=== PATIENT | female | born 1965 | race Two or more races ===

== ENCOUNTER 2025-02-25 09:02 | Inpatient (IN) | payer MEDICAID, OTHER ==
[~2025-02-25] VITALS: Ht 165.1 cm; Wt 68.9 kg
--- NOTE | 2025-02-25 11:30 | DVH ---
CLINICAL HISTORY: abdominal pain TECHNIQUE: Single view of the chest was obtained. COMPARISON: None FINDINGS: The heart size and pulmonary vasculature are normal. The lungs are clear. IMPRESSION: NO ACUTE CARDIOPULMONARY PROCESS.
--- NOTE | 2025-02-25 11:34 | ED.PDOC ---
History of Present Illness HPI Comments 59-year-old female who is Thai-speaking presents to the ER with prior medical history of hypertension, high lipids chief complaint of abdominal pain. Patient reports on having chills, sternal chest pain which radiates down to the epigastric area, bilateral flank pain, cervical pain and nausea for which all started yesterday. Patient states on having had similar symptoms in the past and assumes that it is the liver. Denies any other symptoms at this time. Denies chills, fever, /V/D, SOB, CP. No other associated symptoms, modifiers, recent injuries or sick contacts present at this time. 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 Family History Family History: Reviewed,noncontributory to illness, Unknown Social History Smoker: Non-Smoker Alcohol: Denies ETOH Use Drugs: Denies Drug Use Lives In: Home Constitutional: reports: chills; denies: diaphoresis, fatigue, fever, malaise, sweats, weakness, others EENTM: denies: blurred vision, double vision, ear bleeding, ear discharge, ear drainage, ear pain, ear ringing, eye pain, eye redness, hearing loss, mouth pain, mouth swelling, nasal discharge, nose bleeding, nose congestion, nose pain, photophobia, tearing, throat pain, throat swelling, voice changes, others Respiratory: denies: cough, hemoptysis, orthopnea, SOB at rest, shortness of breath, SOB with excertion, stridor, wheezing, others Cardiovascular: reports: chest pain; denies: dizzy spells, diaphoresis, Dyspnea on exertion, edema, irregular heart beat, left arm pain, lightheadedness, palpitations, PND, syncope, others Gastrointestinal: reports: abdominal pain, nausea; denies: abdomen distended, blood streaked bowels, constipated, diarrhea, dysphagia, difficulty swallowing, hematemesis, melena, poor appetite, poor fluid intake, rectal bleeding, rectal pain, vomiting, others Genitourinary: reports: flank pain; denies: abnormal vagina bleeding, burning, dyspareunia, dysuria, frequency, hematuria, incontinence, pain, , vagina discharge, urgency, others Neurological: denies: dizziness, fainting, headache, left sided numbness, left sided weakness, numbness, paresthesia, pre-existing deficit, right sided numbness, right sided weakness, seizure, speech problems, tingling, tremors, weakness, others Musculoskeletal: reports: others (Cervical pain); denies: back pain, gout, joint pain, joint swelling, muscle pain, muscle stiffness, neck pain Integumetry: denies: bruises, change in color, change in hair/nails, dryness, laceration, lesions, lumps, rash, wounds, others Allergic/Immunocompromised: denies: Difficulty Healing, Frequent Infections, Hives, Itching, others Hematologic/Lymphatic: denies: anemia, blood clots, easy bleeding, easy bruising, swollen glands, others Endocrine: denies: excessive hunger, excessive sweating, excessive thirst, excessive urination, flushing, intolerance to cold, intolerance to heat, unexplained weight gain, unexplained weight loss, others Psychiatric: denies: anxiety, bipolar disorder, depression, hopeless, panic disorder, schizophrenia, sleepless, suicidal, others All Other Systems: Reviewed and Negative Physical Exam General Appearance: No Apparent Distress, Normal HEENT: Normal ENT Inspection, Pharynx Normal, TMs Normal Neck: Full Range of Motion, Non-Tender, Normal, Normal Inspection Respiratory: Chest Non-Tender, Lungs Clear, No Accessory Muscle Use, No Respiratory Distress, Normal Breath Sounds Cardiovascular: No Edema, No JVD, No Murmur, No Gallop, Normal Peripheral Pulses, Regular Rate/Rhythm Breast Exam: Deferred Gastrointestinal: No Organomegaly, Non Tender, No Pulsatile Mass, Normal Bowel Sounds, Soft Genitalia: Deferred Pelvic: Deferred Rectal: Deferred Extremities: No calf tenderness, Normal capillary refill, Normal inspection, Normal range of motion, Non-tender, No pedal edema Musculoskeletal : Apperance: Normal Neurologic: 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 Was a procedure done?: No Differential Dx Considerations may include: see mdm X-Ray, Labs, Meds, VS Vital Signs Date Time Temp Pulse Resp B/P (MAP) Pulse Ox O2 Delivery O2 Flow Rate FiO2 02/25/25 12:50 76 20 142/89 02/25/25 12:10 69 20 188/93 02/25/25 12:10 69 20 97 Room Air 02/25/25 12:10 98.6 69 20 188/93 (124) 97 98.6 02/25/25 09:13 72 02/25/25 09:03 97.9 82 18 170/86 97 97.9 Lab Test 02/25/25 11:31 02/25/25 11:24 Range/Units Urine Color Yellow Yellow Urine Clarity Clear Clear Urine pH 6.0 5.0-9.0 Urine Specific [place] 1.022 1.001-1.035 Urine Protein 1+ H Negative Urine Ketones Negative Negative Urine Blood 2+ H Negative /uL Urine Nitrite Negative Negative Urine Bilirubin Negative Negative Urine Urobilinogen Normal Negative mg/dL Urine Leukocyte Esterase Negative Negative /uL Urine RBC 21 0 - 4 /hpf Urine Microscopic WBC 5 0-5 /HPF Urine Squamous Epithelial Cells Few <5 /hpf Urine Bacteria Few H None Seen /hpf Urine Mucus Few None Seen Urine Glucose Trace Normal mg/dL White Blood Count 12.5 H 4.4-10.8 10^3/uL Red Blood Count 4.83 4.0-5.20 10^6/uL Hemoglobin 15.2 12.2-16.2 g/dL Hematocrit 44.5 36.0-46.0 % Mean Corpuscular Volume 92.2 80.0-100.0 fL Mean Corpuscular Hemoglobin 31.5 28.0-32.0 pg Mean Corpuscular Hemoglobin Concent 34.2 32.0-36.0 g/dL Red Cell Distribution Width 12.5 11.8-14.3 % Platelet Count 252 140-450 10^3/uL Mean Platelet Volume 9.0 6.9-10.8 fL Neutrophils (%) (Auto) 93.4 H 37.0-80.0 % Lymphocytes (%) (Auto) 4.6 L 10.0-50.0 % Monocytes (%) (Auto) 1.8 0.0-12.0 % Eosinophils (%) (Auto) 0.0 0.0-7.0 % Basophils (%) (Auto) 0.2 0.0-2.0 % Neutrophils # (Auto) 11.6 H 1.6-8.6 10 ^3/uL Lymphocytes # (Auto) 0.6 0.4-5.4 10 ^3/uL Monocytes # (Auto) 0.2 0-1.3 10 ^3/uL Eosinophils # (Auto) 0 0-0.8 10 ^3/uL Basophils # (Auto) 0 0-0.2 10 ^3/uL Nucleated Red Blood Cells 0.1 % Sodium Level 140 136-145 mmol/L Potassium Level 3.8 3.5-5.1 mmol/L Chloride Level 101 98-107 mmol/L Carbon Dioxide Level 28 20-31 mmol/L Anion Gap 11 5-15 Blood Urea Nitrogen 8 L 9-23 mg/dL Creatinine 0.68 0.550-1.02 mg/dL Glomerular Filtration Rate Calc 99 >90 mL/min BUN/Creatinine Ratio 11.8 10.0-20.0 Serum Glucose 133 H 74-106 mg/dL Calcium Level 10.5 H 8.7-10.4 mg/dL Total Bilirubin 0.7 0.2-1.0 mg/dL Aspartate Amino Transferase (AST) 18 13-40 U/L Alanine Aminotransferase (ALT) 19 7-40 U/L Alkaline Phosphatase 113 46-116 U/L Troponin I High Sensitivity 29 </=34 ng/L Total Protein 8.0 5.7-8.2 g/dL Albumin 4.9 H 3.2-4.8 g/dL Lipase 25 12-53 U/L Current Medications Medications (Trade) Dose Ordered Sig/Kirsty Route Start Time Stop Time Status Last Admin Sodium Chloride 1,000 ml @ 1,000 mls/hr Q1H ONCE IV 02/25/25 11:15 02/25/25 12:14 DC 02/25/25 12:08 Morphine Sulfate 4 mg ONCE ONCE IV 02/25/25 11:15 02/25/25 11:16 DC 02/25/25 12:10 Ondansetron HCl (Zofran) 4 mg ONCE ONCE IV 02/25/25 11:15 02/25/25 11:16 PA 02/25/25 12:08 Time of 1ST Reevaluation: 11:35 Reevaluation 1ST: Unchanged Patient Education/Counseling: Diagnosis, Treatment, Prognosis Family Education/Counseling: No Family Present SEPSIS Sepsis Screen Date sepsis recognized/suspect: Feb 25, 2025 Time Sepsis recognized/suspect: 905 Recent Procedure: No On Antibiotic Therapy: No Respiratory Rate >20: No Heart Rate >90: No Temp<36 C (96.8 F) or >38.3 C: No SBP <90 or MAP <65 mmHG: No New Acute Mental Status Change: No Is the patient on CPAP, BIPAP,: No Physician Orders Electrocardigram (02/25/25 09:07) Chest Portable (02/25/25 11:02) Ct Ab Pel With Iv Con Only (02/25/25 11:40) * Surgical Consult (02/25/25 ) Sodium Chloride 0.9% (02/25/25 14:00) Morphine Sulfate Injection (02/25/25 14:00) Ondansetron Hcl (Zofran) (02/25/25 14:00) Cefazolin 2 Gm/L4t21dz (Ancef) (02/25/25 14:00) Metronidazole 500mg/100ml (Flagyl 500mg/ (02/25/25 14:00) Vital Signs Date Time Temp Pulse Resp B/P (MAP) Pulse Ox O2 Delivery O2 Flow Rate FiO2 02/25/25 12:50 76 20 142/89 02/25/25 12:10 69 20 188/93 02/25/25 12:10 69 20 97 Room Air 02/25/25 12:10 98.6 69 20 188/93 (124) 97 98.6 02/25/25 09:13 72 02/25/25 09:03 97.9 82 18 170/86 97 97.9 Laboratory Tests Test 02/25/25 11:24 White Blood Count 12.5 10^3/uL (4.4-10.8) H Medications Medications Dose Ordered Sig/Kirsty Route Start Time Stop Time Status Last Admin Dose Admin Morphine Sulfate 4 mg ONCE ONCE IV 02/25/25 11:15 02/25/25 11:16 DC 02/25/25 12:10 Ondansetron HCl 4 mg ONCE ONCE IV 02/25/25 11:15 02/25/25 11:16 DC 02/25/25 12:08 Sodium Chloride 1,000 ml @ 1,000 mls/hr Q1H ONCE IV 02/25/25 11:15 02/25/25 12:14 DC 02/25/25 12:08 Departure 1 Departure Time of Disposition: 14:13 (MEDICAL DECISION MAKING (HIGH COMPLEXITY 80831):The patient is a 59-year-old female with a history of hypertension and hyperlipidemia who presents with intractable abdominal pain. Her presentation and diagnostic findings are concerning for acute cholecystitis, representing an acute illness with risk of significant morbidity and potential for rapid deterioration.Data Reviewed / Independent Interpretation:I independently reviewed all lab and imaging studies.CBC is notable for WBC 12.5, suggesting an acute inflammatory or infectious process.CMP is benign, without evidence of biliary obstruction, hepatic dysfunction, or renal injury.Lipase is benign, reducing likelihood of acute pancreatitis.I independently interpreted the CT scan, which shows findings concerning for acute cholecystitis, including gallbladder wall thickening and pericholecystic inflammatory changes.These findings correlate strongly with her persistent right upper quadrant abdominal pain, nausea, and systemic inflammatory response.Assessment, Differential & Ma nagement:Differential diagnoses included acute cholecystitis, choledocholithiasis, cholangitis, pancreatitis, appendicitis, perforated ulcer, and nonspecific infectious or ischemic abdominal pathology. Given her clinical presentation, CT findings, and leukocytosis, acute cholecystitis is the leading diagnosis.The patient has intractable abdominal pain requiring multiple doses of IV morphine, and nausea managed with IV ondansetron. She has also required IV fluids for volume support. Treatment was initiated with broad-spectrum IV antibiotics to reduce progression to sepsis or gallbladder perforation.Given the severity of pain, CT findings, elevated WBC, and risk of rapid deterioration including sepsis, rupture, or biliary obstruction, urgent surgical evaluation is required. I have contacted and consulted the surgical service, who will evaluate the patient for admission and operative management.Due to the acute intra- abdominal infection and the patients ongoing symptoms despite treatment, inpatient admission is medically necessary for IV antibiotics, serial abdominal exams, pain control, and surgical management.CRITICAL CARE TIME: 38 MINUTESA total of 38 minutes of critical care time was provided, exclusive of separately billable procedures. Critical care was required due to the immediate risk of significant morbidity from suspected acute cholecystitis with potential for sepsis, gallbladder rupture, peritonitis, and hemodynamic instability.Critical care activities included:Frequent bedside reassessment of abdominal exam and hemodynamic statusInterpretation of labs (CBC, CMP, lipase) and CT imagingInitiation and titration of IV fluidsAdministration of IV antibioticsManagement of severe abdominal pain and nauseaDevelopment and adjustment of the acute abdominal infection treatment planCoordination and discussion with the surgical teamContinuous monitoring for clinical deteriorationHigh-intensity medical decision making throughout her ED courseThe patient was at high risk for sudden progression to sepsis or peritonitis, warranting critical care.) Impression: Primary Impression: Acute cholecystitis Additional Impressions: Intractable abdominal pain Nausea Disposition: ADMITTED INPATIENT Admit to: Tele Condition: Guarded Critical Care Note Critical Care Time?: Yes Stability Stability form required: No I personally scribed for SRINI AREVALO MD ([email or web address]) on 02/25/25 at 11:34. Electronically submitted by Alban Can ([email or web address]). SRINI AREVALO MD Feb 25, 2025 11:34
[2025-02-25 11:38] LABS: Hematocrit 44.5 % (36.0-46.0); Hemoglobin 15.2 g/dL (12.2-16.2); Mean Corpuscular Hemoglobin 31.5 pg (28.0-32.0); Mean Corpuscular Volume 92.2 fL (80.0-100.0); Nucleated Red Blood Cells % 0.1 %
[2025-02-25 11:53] LABS: Alanine Aminotransferase 19 U/L (7-40); Alkaline Phosphatase 113 U/L (46-116); Anion Gap 11 (5-15); BUN/Creatinine Ratio 11.8 (10.0-20.0); Carbon Dioxide 28 mmol/L (20-31); Chloride 101 mmol/L (98-107); Potassium 3.8 mmol/L (3.5-5.1); Sodium 140 mmol/L (136-145); Total Protein 8.0 g/dL (5.7-8.2)
[2025-02-25 11:54] LABS: Bilirubin, Total 0.7 mg/dL (0.2-1.0)
[2025-02-25 11:57] LABS: Albumin 4.9 g/dL (3.2-4.8); Blood Urea Nitrogen 8 mg/dL (9-23); Calcium 10.5 mg/dL (8.7-10.4); Glucose 133 mg/dL (74-106)
[2025-02-25] MEDS: SODIUM CHLORIDE 0.9% 1,000 ML IV ONE ×2 (12:08→14:29)
[2025-02-25] MEDS: ONDANSETRON HCL 4 MG/2 ML VIAL IV ONE ×2 (12:08→14:49)
[2025-02-25] MEDS: MORPHINE SULFATE 4 MG/ML SYR/VIAL IV ONE ×2 (12:10→14:50)
[2025-02-25 12:38] LABS: Lipase 25 U/L (12-53)
[2025-02-25] MEDS: IOHEXOL 300 MG/ML 100ML BOTTLE IJ ONE (13:15)
[2025-02-25 13:23] LABS: Urine Protein, UAD 1+ (Negative)
--- NOTE | 2025-02-25 13:48 | DVH ---
CLINICAL HISTORY: abdominal pain TECHNIQUE: CT of the abdomen and pelvis was performed with IV contrast. This exam was performed according to our departmental dose optimization program. Up-to-date CT equipment and radiation dose reduction techniques are utilized as appropriate. CTDI 7.8 DLP 411 COMPARISON: None FINDINGS: Abdomen/Pelvis: The spleen, pancreas, right adrenal gland, left kidney, uterus, and bladder are unremarkable. There is diffuse hepatic steatosis. The right kidney is malrotated. There is a 2.5 cm stone within the gallbladder neck an additional stone within the gallbladder fundus. There is subtle minimal pericholecystic inflammation and mild gallbladder wall thickening The abdominal aorta is normal in course and caliber. There are no significant atherosclerotic calcifications. There is no free intraperitoneal air or fluid. There is no enlarged abdominal or pelvic lymph node. There is no bowel wall thickening or dilatation. The appendix is normal. There is colonic diverticulosis, moderate at the sigmoid segment. Other: The imaged lower thorax is unremarkable. No acute osseous abnormality is evident. IMPRESSION: Cholelithiasis with mild gallbladder wall thickening and subtle minimal pericholecystic inflammatory change, raising possibility of early acute cholecystitis. Diffuse hepatic steatosis. Colonic diverticulosis.
[2025-02-25] MEDS: ceFAZolin 2 GM/D5W50ml 50 ML IV ONE (14:48)
[2025-02-25] MEDS: BUPIVACAINE HCL 50 ML ONE (16:05)
--- NOTE | 2025-02-25 16:07 | DVHINCON2 ---
Consultation - Surgical Date Seen: Feb 25, 2025 Referring Physician Reason for Consultation Cholecystitis History of Present Illness History of Present Illness Mrs. Mobley is a 59-year-old female who presents with epigastric and right upper quadrant abdominal pain that started yesterday around 5:00 p.m.. Patient states she ate some rice and chicken before the pain started. States that it feels like the gallbladder pain she had 4 years ago, she has not had any other pain episodes until now in the last 4 years. Has a associated chills and nausea but no vomiting. Denies fevers, acholic stools, changes in urinary or stooling habits. Past Medical/Surgical History Past Medical/Surgical History Past medical history hyperlipidemia, hypertension, left breast cancer, cholelithiasis past surgical history left partial mastectomy with axillary sentinel lymph node biopsy, some sort of uterine surgery Family and Social History Family and Social History Family history noncontributory ETOH/T Ob/drugs denies Allergies and medications Allergies: Coded Allergies: NO KNOWN ALLERGIES (Unverified , 02/25/25) Review of systems Review of Systems: HEENT:Normal, CVS:Normal, RESPIRATORY:Normal, GI:Abnormal (See HPI), :Normal, MSK:Normal, NEURO:Normal Examination Vital signs Vital Signs Date Time Temp Pulse Resp B/P (MAP) Pulse Ox O2 Delivery O2 Flow Rate FiO2 02/25/25 14:50 65 18 193/97 02/25/25 12:10 97 Room Air 02/25/25 12:10 98.6 98.6 Laboratory Labs Test 02/25/25 11:31 02/25/25 11:24 Range/Units Urine Color Yellow Yellow Urine Clarity Clear Clear Urine pH 6.0 5.0-9.0 Urine Specific [place] 1.022 1.001-1.035 Urine Protein 1+ H Negative Urine Ketones Negative Negative Urine Blood 2+ H Negative /uL Urine Nitrite Negative Negative Urine Bilirubin Negative Negative Urine Urobilinogen Normal Negative mg/dL Urine Leukocyte Esterase Negative Negative /uL Urine RBC 21 0 - 4 /hpf Urine Microscopic WBC 5 0-5 /HPF Urine Squamous Epithelial Cells Few <5 /hpf Urine Bacteria Few H None Seen /hpf Urine Mucus Few None Seen Urine Glucose Trace Normal mg/dL White Blood Count 12.5 H 4.4-10.8 10^3/uL Red Blood Count 4.83 4.0-5.20 10^6/uL Hemoglobin 15.2 12.2-16.2 g/dL Hematocrit 44.5 36.0-46.0 % Mean Corpuscular Volume 92.2 80.0-100.0 fL Mean Corpuscular Hemoglobin 31.5 28.0-32.0 pg Mean Corpuscular Hemoglobin Concent 34.2 32.0-36.0 g/dL Red Cell Distribution Width 12.5 11.8-14.3 % Platelet Count 252 140-450 10^3/uL Mean Platelet Volume 9.0 6.9-10.8 fL Neutrophils (%) (Auto) 93.4 H 37.0-80.0 % Lymphocytes (%) (Auto) 4.6 L 10.0-50.0 % Monocytes (%) (Auto) 1.8 0.0-12.0 % Eosinophils (%) (Auto) 0.0 0.0-7.0 % Basophils (%) (Auto) 0.2 0.0-2.0 % Neutrophils # (Auto) 11.6 H 1.6-8.6 10 ^3/uL Lymphocytes # (Auto) 0.6 0.4-5.4 10 ^3/uL Monocytes # (Auto) 0.2 0-1.3 10 ^3/uL Eosinophils # (Auto) 0 0-0.8 10 ^3/uL Basophils # (Auto) 0 0-0.2 10 ^3/uL Nucleated Red Blood Cells 0.1 % Sodium Level 140 136-145 mmol/L Potassium Level 3.8 3.5-5.1 mmol/L Chloride Level 101 98-107 mmol/L Carbon Dioxide Level 28 20-31 mmol/L Anion Gap 11 5-15 Blood Urea Nitrogen 8 L 9-23 mg/dL Creatinine 0.68 0.550-1.02 mg/dL Glomerular Filtration Rate Calc 99 >90 mL/min BUN/Creatinine Ratio 11.8 10.0-20.0 Serum Glucose 133 H 74-106 mg/dL Calcium Level 10.5 H 8.7-10.4 mg/dL Total Bilirubin 0.7 0.2-1.0 mg/dL Aspartate Amino Transferase (AST) 18 13-40 U/L Alanine Aminotransferase (ALT) 19 7-40 U/L Alkaline Phosphatase 113 46-116 U/L Troponin I High Sensitivity 29 </=34 ng/L Total Protein 8.0 5.7-8.2 g/dL Albumin 4.9 H 3.2-4.8 g/dL Lipase 25 12-53 U/L Examination: GENERAL:Normal (Well nourished, alert awake and oriented x3), HEENT:Normal (No icterus, neck supple), LUNGS:Normal (Nonlabored breathing with symmetric expansion), ABDOMEN:Abnormal (Nondistended, Pfannenstiel scar well healed, soft, depressible, mild epigastric tenderness exquisite right upper quadrant tenderness, no rebound, no guarding), SKIN:Normal (No jaundice) Problem List/Assessment/Plan Problems: (1) Acute cholecystitis Assessment and Plan Mrs. Mobley is a 59-year-old female who presents with the acute cholecystitis. CT scan remarkable for 2 extremely large gallstones 1 stuck at the neck of the gallbladder. Physical exam remarkable for exquisite right upper quadrant tenderness. Patient has no leukocytosis or transaminitis. Patient will benefit from laparoscopic cholecystectomy. Procedure, risks, benefits, complications, and alternatives discussed with the patient. She would like to proceed with surgery. 1. On-call to OR for laparoscopic cholecystectomy, possible open 2. NPO 3. A.m. labs (ordered) 4. Pain and nausea control Plan discussed with Plan discussed with: Patient Visit Coding Surgery Date of Service if different f: Feb 25, 2025 Billing Provider: JEROME PRABHAKAR MD Surgery Visit Codes: 81797 - INP CONSULT <110 MIN JEROME PRABHAKAR MD Feb 25, 2025 16:07
[2025-02-25] MEDS ORDERED: METOCLOPRAMIDE HCL 5MG/ml INJ 2ml VIAL IV PRN (16:45)
[2025-02-25] MEDS: ACETAMINOPHEN IV 1000 MG/100ML (10MG/ML) IV ONE (16:45)
[2025-02-25] MEDS ORDERED: ONDANSETRON HCL 4 MG/2 ML VIAL IV PRN ×2 (16:45→19:00)
[2025-02-25] MEDS ORDERED: MIDAZOLAM HCL 2MG/2ML 2ml VIAL (1mg/ml) ONE (16:45)
[2025-02-25] MEDS ORDERED: LIDOCAINE 2% (LOCAL ANESTH.) PF 5ml SDV ONE (16:45)
[2025-02-25] MEDS ORDERED: fentaNYL CITRATE 100 MCG/2 ML VL ONE (16:45)
[2025-02-25] MEDS ORDERED: HYDROmorphone HCL 2 MG/ML VL/or syr IV PRN (16:45)
[2025-02-25] MEDS ORDERED: ONDANSETRON HCL 4 MG/2 ML VIAL ONE (16:45)
[2025-02-25] MEDS ORDERED: METOCLOPRAMIDE HCL 5MG/ml INJ 2ml VIAL ONE (16:45)
[2025-02-25] MEDS ORDERED: ROCURONIUM 10MG/ML 10ML VIAL IV ONE (16:46)
[2025-02-25] MEDS ORDERED: PROPOFOL 10 MG/ML 20 ML IV ONE (16:46)
[2025-02-25 17:07] LABS: INR 0.97 (0.9-1.15); Partial Thromboplastin Time 25.9 SEC (24.5-34.5); Prothrombin Time 10.3 sec (9.3-11.8)
[2025-02-25] MEDS ORDERED: HYDROmorphone HCL 2 MG/ML VL/or syr ONE (17:17)
[2025-02-25] MEDS ORDERED: SUGAMMADEX 200mg/2ml Vial (100MG/ML) IV ONE (17:17)
[2025-02-25] MEDS: BUPIVACAINE 0.5% INJ 50ML VIAL IJ ONE (17:45)
[2025-02-25 18:17] VITALS: PULSE 96; RESP 11; O2SAT 98
[2025-02-25] MEDS ORDERED: HYDROcodone-ACET 10/325MG TAB PO PRN (18:30)
[2025-02-25] MEDS ORDERED: HYDROcodone-ACET 5/325MG TAB PO PRN ×2 (18:30→19:00)
--- NOTE | 2025-02-25 18:35 | DVHOP2 ---
Operative Report - 2 Report Details Date: 02/25/25 Preop Diagnosis: Acute cholecystitis Postop Diagnosis: Same Surgeon: Joel Saha MD Anesthesiologist: Steven howard CRNA Anesthesia: General Consent: The patient was informed of the risks and benefits of the procedure. These include but are not limited to complications of anesthesia, postoperative infection, incomplete relief of symptoms, recurrence of symptoms, damage to blood vessels, nerves and tendons, deep venous thrombosis, pulmonary embolism and possible need for repeat surgery in the future. Complications: None Estimated Blood Loss: 25 mL Findings: Acutely inflamed and distended gallbladder. Extensive omental adhesions to the liver undersurface. Indications for Surgery: Acute cholecystitis Name of Procedure Performed Laparoscopic cholecystectomy Procedure Details Procedure Details: Upon arriving to the operating room the patient was transferred to the operating table and placed in the supine position with the arms extended. general endotracheal anesthesia was induced. Time-out was observed. Patient was prepped and draped in the standard sterile surgical fashion with chlorhexidine. I then proceeded to make an infraumbilical curvilinear incision over previous infraumbilical scar, and carried the dissection down to fascia. Once at the fascia I grasped the umbilical stalk with a Martin clamp and walked it down to its base. Once at the base of the umbilical stalk, I placed a 2nd Martin clamp at the fascia immediately be low at and elevating both clamps I made a transverse fascial incision, gaining entry into the peritoneal cavity. I then placed a fascial retention stitch in [id number] fashion with 0 Vicryl. I t hen inserted the Caldwell trocar and insufflated the peritoneal cavity to 15 mmHg with toleration. I then inserted a 10 mm 30 degree laparoscope, surveyed the entry site, no injuries noted. Patient was then placed in the reverse Trendelenburg [id number] position. I then placed 3 additional 5 mm working ports at the epigastric area, right midclavicular subcostal area, and right flank area. I then directed my attention towards the liver and gallbladder area. The gallbladder was immediately noted to be extremely inflamed and distended. I then decompressed the gallbladder with a needle syringe and evacuated 50 mL of very dark bile. I also noted that the liver was not enlarged and had many omental adhesions to its undersurface surface. The gallbladder fu ndus was then grasped and retracted cephalad and towards the right shoulder. The infundibulum had a large stone stuck in it, I had to milk the stone back into the gallbladder body. A 2nd grasper was used to grasp the gallbladder at the infundibulum and retracted laterally. I then proceeded to incise the peritoneum at the base of the gallbladder on either side of it and carried it towards the liver. This then exposed Calot triangle. I then carefully dissected cholesterol angle off of all fibrous and fatty tissue. Once it was completely skeletonized identified 2 structures entering the gallbladder, the cystic duct and the cystic artery. The cystic duct was then milked for any ductal stones, non felt. I then placed 3 5 mm clips proximal at the cystic duct and 1 distal. I then placed 4 5 mm clips proximal at the artery and 1 distal. The cystic duct and artery were then transected. I then proceeded to dissect the gallbladder off of the liver bed with cautery. While doing this I got into a posterior cystic artery branch, which I gained control of it with a single clip, hemostasis achieved. Once the gallbladder was completely off of the liver bed it was placed in the Endo-Catch bag and taken out of the peritoneal cavity through the infraumbilical incision. I then proceeded to look at the gallbladder fossa, I noted an area of ooze coming from the fossa, this was cauterized and hemostasis achieved. I then proceeded to serially irrigated the gallbladder fossa under the liver and over the liver until effluent was clear. I took a 2nd look at the gallbladder fossa it was hemostatic and the clips were in place. This concluded the intraperitoneal portion of the operation. All counts complete and correct. The 5 mm ports were taken off under direct vision no bleeding from abdominal wall. Peritoneal cavity was allowed to fully desufflate. The infraumbilical fascial retention stitch was closed. 0.25% Marcaine was used as local anesthetic. All skin sites were closed with 4-0 Monocryl and Dermabond. Patient tolerated the procedure well and was transferred to PACU in stable condition. Specimen: Gallbladder and contents Condition Stable Disposition Still a Patient JOEL PRABHAKAR MD Feb 25, 2025 18:35
[2025-02-25] MEDS ORDERED: NITROGLYCERIN 0.4 MG SL TAB SL PRN (19:00)
[2025-02-25] MEDS ORDERED: ACETAMINOPHEN 325 MG TAB PO PRN (19:00)
[2025-02-25] MEDS ORDERED: MORPHINE SULFATE INJ 2 MG/ml SYRG IV PRN (19:00)
[2025-02-25] MEDS ORDERED: hydrALAZINE HCL 20 MG/ML VL IV PRN (19:00)
[2025-02-25] MEDS ORDERED: DOCUSATE SOD 100 MG CAP PO PRN (19:00)
--- NOTE | 2025-02-25 19:18 | DVHHP2 ---
History of Present Illness Reason for Visit: Acute cholecystitis History of Present Illness The patient is a 59-year-old female with past medical history of cholelithiasis, hypothyroidism, hyperlipidemia, left breast cancer, and hypertension who presented to [facility] ED with complaint of abdominal pain. Patient reports that she has been experiencing acute abdominal pain rating 8/10 numeric scale, radiating sternal chest pain, down to epigastric area, bilateral flank, cervical pain, associated nausea, vomiting, chills, getting worse that prompted this visit. Patient was seen and evaluated in the ED, laboratory data shows WBC 12.5, platelets 252, sodium 140, potassium 3.8, BUN 8, creatinine 0.68, GFR 99, glucose 133, calcium 10.5, albumin 4.9, lipase 25, troponin 29, blood pressure 178/87, heart rate 74, temperature 98.7 F, O2 saturation 95% on room air. Abdomen/pelvis CT revealing cholelithiasis with mild gallbladder wall thickening and subtle minimal pericholecystic inflammatory change, raising possibility of early acute cholecystitis; diffuse hepatic steatosis, colonic diverticulosis. Patient was started on IV antibiotic regimen cefepime, please see medication orders section in the computer. General surgeon was consulted and she was taken to operating room. Patient underwent laparoscopic cholecystectomy successfully without any complication. On my assessment, patient denied chest pain, no headache, dizziness, diaphoresis, shortness of breaths, no abdominal pain, nausea, vomiting at this moment, no fever, chills. Patient was admitted for further evaluation and medical management. Past Medical History Cholelithiasis, Hypothyroidism High Lipids, HTN, Left breast cancer Past Surgical History Left partial mastectomy with axillary sentinel lymph node biopsy, Uterine surgery. Family History Reviewed, noncontributory to the management of this case. Past Social History The patient lives at home, denies smoking, alcohol or illicit drugs abuse. Review of Systems Constitutional: No: Fever, Chills, Sweats, Weakness, Malaise, Other Eyes: No: Pain, Vision change, Conjunctivae inflammation, Eyelid inflammation, Other, Redness ENT: No: Ear pain, Ear discharge, Nose pain, Nose discharge, Nose congestion, Mouth pain, Mouth swelling, Throat pain, Throat swelling, Other Respiratory: No: Cough, Dry, Shortness of breath, SOB with excertion, Wheezing, Hemoptysis, Pleuritic Pain, Sputum, Wheezing, Other Cardiovascular: Chest Pain; No: Palpitations, Orthopnea, Paroxysmal Noc. Dyspnea, Edema, Lt Headedness, Other Gastrointestinal: Nausea, Vomiting, Abdominal Pain; No: Diarrhea, Constipation, Melena, Hematochezia, Other Genitourinary: No Dysuria, No Frequency, No Incontinence, No Hematuria, No Retention, No Other Musculoskeletal: No: other, neck pain, shoulder pain, arm pain, back pain, hand pain, leg pain, foot pain Skin: No: Rash, Lesions, Jaundice, Bruising, Other Neurological: No: Weakness, Numbness, Incoordination, Change in speech, Confusion, Seizures, Other Allergies: Coded Allergies: NO KNOWN ALLERGIES (Unverified , 02/25/25) Medications Current Medications Medications Dose Ordered Sig/Kirsty Route Start Time Stop Time Status Last Admin Dose Admin Acetaminophen/ Hydrocodone Bitart 1 tab Q4HR PRN PO 02/25/25 18:30 Acetaminophen/ Hydrocodone Bitart 1 tab Q4HR PRN PO 02/25/25 18:30 Acetaminophen 650 mg Q6HR PO 02/26/25 00:00 Polyethylene Glycol 17 gm DAILY PO 02/26/25 10:00 Atorvastatin Calcium 10 mg HS PO 02/26/25 22:00 UNV Lisinopril 10 mg DAILY PO 02/26/25 10:00 UNV Exam Vital Signs Vital Signs Date Time Temp Pulse Resp B/P (MAP) Pulse Ox O2 Delivery O2 Flow Rate FiO2 02/25/25 15:57 98.7 73 18 178/87 (117) 95 98.7 02/25/25 12:10 Room Air General Appearance: Alert, Oriented X3, Cooperative, No acute distress HEENT: Atraumatic, PERRLA, EOMI, Mucous membr. moist/pink Respiratory: Clear to auscultation, Normal air movement Cardiovascular: Regular rate, Normal S1, Normal S2, No murmurs Abdominal: Normal bowel sounds, Soft, No hepatospenomegaly, No masses, Other (Reports tenderness) Extremities: No clubbing, No cyanosis, No edema, Normal pulses, No tenderness/swelling Skin: No rashes, No breakdown, No significant lesion Neuro: Normal speech, Normal tone, Sensation intact, Cranial nerves 3-12 NL, Reflexes 2+, Other (Generalized weakness) Psych/Mental Status: Mental status NL, Mood NL Labs/Xrays Labs Test 02/25/25 16:20 02/25/25 11:31 02/25/25 11:24 Range/Units Prothrombin Time 10.3 9.3-11.8 sec Prothrombin Time INR 0.97 0.9-1.15 Activated Partial Thromboplast Time 25.9 24.5-34.5 SEC Urine Color Yellow Yellow Urine Clarity Clear Clear Urine pH 6.0 5.0-9.0 Urine Specific [place] 1.022 1.001-1.035 Urine Protein 1+ H Negative Urine Ketones Negative Negative Urine Blood 2+ H Negative /uL Urine Nitrite Negative Negative Urine Bilirubin Negative Negative Urine Urobilinogen Normal Negative mg/dL Urine Leukocyte Esterase Negative Negative /uL Urine RBC 21 0 - 4 /hpf Urine Microscopic WBC 5 0-5 /HPF Urine Squamous Epithelial Cells Few <5 /hpf Urine Bacteria Few H None Seen /hpf Urine Mucus Few None Seen Urine Glucose Trace Normal mg/dL White Blood Count 12.5 H 4.4-10.8 10^3/uL Red Blood Count 4.83 4.0-5.20 10^6/uL Hemoglobin 15.2 12.2-16.2 g/dL Hematocrit 44.5 36.0-46.0 % Mean Corpuscular Volume 92.2 80.0-100.0 fL Mean Corpuscular Hemoglobin 31.5 28.0-32.0 pg Mean Corpuscular Hemoglobin Concent 34.2 32.0-36.0 g/dL Red Cell Distribution Width 12.5 11.8-14.3 % Platelet Count 252 140-450 10^3/uL Mean Platelet Volume 9.0 6.9-10.8 fL Neutrophils (%) (Auto) 93.4 H 37.0-80.0 % Lymphocytes (%) (Auto) 4.6 L 10.0-50.0 % Monocytes (%) (Auto) 1.8 0.0-12.0 % Eosinophils (%) (Auto) 0.0 0.0-7.0 % Basophils (%) (Auto) 0.2 0.0-2.0 % Neutrophils # (Auto) 11.6 H 1.6-8.6 10 ^3/uL Lymphocytes # (Auto) 0.6 0.4-5.4 10 ^3/uL Monocytes # (Auto) 0.2 0-1.3 10 ^3/uL Eosinophils # (Auto) 0 0-0.8 10 ^3/uL Basophils # (Auto) 0 0-0.2 10 ^3/uL Nucleated Red Blood Cells 0.1 % Sodium Level 140 136-145 mmol/L Potassium Level 3.8 3.5-5.1 mmol/L Chloride Level 101 98-107 mmol/L Carbon Dioxide Level 28 20-31 mmol/L Anion Gap 11 5-15 Blood Urea Nitrogen 8 L 9-23 mg/dL Creatinine 0.68 0.550-1.02 mg/dL Glomerular Filtration Rate Calc 99 >90 mL/min BUN/Creatinine Ratio 11.8 10.0-20.0 Serum Glucose 133 H 74-106 mg/dL Calcium Level 10.5 H 8.7-10.4 mg/dL Total Bilirubin 0.7 0.2-1.0 mg/dL Aspartate Amino Transferase (AST) 18 13-40 U/L Alanine Aminotransferase (ALT) 19 7-40 U/L Alkaline Phosphatase 113 46-116 U/L Troponin I High Sensitivity 29 </=34 ng/L Total Protein 8.0 5.7-8.2 g/dL Albumin 4.9 H 3.2-4.8 g/dL Lipase 25 12-53 U/L PATIENT: LIZETT URENA ACCT: [id number] UNIT: [id number] : 1965 LOC: ER ROOM / BED: / AGE / SEX: 59 / F ADM STATUS: REG ER SERVICE 1140 ORDERING PHYSICIAN: SRINI AREVALO MD PROCEDURE(s): ABPLIV - CT AB PEL WITH IV CON ONLY REASON: abdominal pain ORDER NUMBER(s): [id number], ACCESSION NUMBER(s): [id number] CLINICAL HISTORY: abdominal pain TECHNIQUE: CT of the abdomen and pelvis was performed with IV contrast. This exam was performed according to our departmental dose optimization program. Up-to-date CT equipment and radiation dose reduction techniques are utilized as appropriate. CTDI 7.8 DLP 411 COMPARISON: None FINDINGS: Abdomen/Pelvis: The spleen, pancreas, right adrenal gland, left kidney, uterus, and bladder are unremarkable. There is diffuse hepatic steatosis. The right kidney is malrotated. There is a 2.5 cm stone within the gallbladder neck an additional stone within the gallbladder fundus. There is subtle minimal pericholecystic inflammation and mild gallbladder wall thickening The abdominal aorta is normal in course and caliber. There are no significant atherosclerotic calcifications. There is no free intraperitoneal air or fluid. There is no enlarged abdominal or pelvic lymph node. There is no bowel wall thickening or dilatation. The appendix is normal. There is colonic diverticulosis, moderate at the sigmoid segment. Other: The imaged lower thorax is unremarkable. No acute osseous abnormality is evident. IMPRESSION: Cholelithiasis with mild gallbladder wall thickening and subtle minimal pericholecystic inflammatory change, raising possibility of early acute cholecystitis. Diffuse hepatic steatosis. Colonic diverticulosis. ORDERING PHYSICIAN: SRINI AREVALO MD PROCEDURE(s): CXRP - CHEST PORTABLE REASON: abdominal pain ORDER NUMBER(s): [id number], ACCESSION NUMBER(s): [id number] CLINICAL HISTORY: abdominal pain TECHNIQUE: Single view of the chest was obtained. COMPARISON: None FINDINGS: The heart size and pulmonary vasculature are normal. The lungs are clear. IMPRESSION: NO ACUTE CARDIOPULMONARY PROCESS. SEPSIS Sepsis Screen Date sepsis recognized/suspect: Feb 25, 2025 Time Sepsis recognized/suspect: 905 Recent Procedure: No On Antibiotic Therapy: No Respiratory Rate >20: No Heart Rate >90: No Temp<36 C (96.8 F) or >38.3 C: No SBP <90 or MAP <65 mmHG: No New Acute Mental Status Change: No Is the patient on CPAP, BIPAP,: No Physician Orders Chest Portable (02/25/25 11:02) Ct Ab Pel With Iv Con Only (02/25/25 11:40) * Surgical Consult (02/25/25 ) Complete Blood Count (02/26/25 04:00) Comprehensive Metabolic Panel (02/26/25 04:00) Bilirubin, Direct (02/26/25 04:00) Npo After Midnight (02/25/25 15:14) Obtain Consent For: (02/25/25 16:07) Obtain Consent For Anesthesia (02/25/25 16:07) Oxygen By Face Mask (02/25/25 16:32) Door Technician (02/25/25 16:32) Notify Anesth. For Changes: (02/25/25 16:32) Pulse Ox Assessment (02/25/25 16:32) Discharge To Room Per Criteria (02/25/25 16:32) Hydrocodone-Acet 5/325mg Tab ([place] 5/32 (02/25/25 18:30) Hydrocodone-Acet 10/325mg Tab ([place] 10/ (02/25/25 18:30) Acetaminophen Tablet (Tylenol Tablet) (02/26/25 00:00) Polyethylene Glycol 17g Powder (Miralax (02/26/25 10:00) Abdominal Binder (02/25/25 18:17) Sequential Compression Device (02/25/25 18:17) Incentive Spirometry (02/25/25 18:17) Atorvastatin (Lipitor) (02/26/25 22:00) Lisinopril Tablet (Zestril Tablet) (02/26/25 10:00) Ceftriaxone 1gm/50ml (Rocephin) (02/26/25 09:00) Ceftriaxone 1gm/50ml (Rocephin) (02/25/25 19:00) Hydralazine Injection (Apresoline Inject (02/25/25 19:00) Hemoglobin A1c (02/25/25 18:48) Levothyroxine Tablet (Synthroid Tablet) (02/26/25 06:00) Thyroid Stimulating Hormone (02/26/25 04:00) Admit (02/25/25 18:48) Allergies (02/25/25 18:48) Code Status (02/25/25 18:48) Oxygen Per Hour (02/25/25 18:48) Hydrocodone-Acet 5/325mg Tab ([place] 5/32 (02/25/25 19:00) Ondansetron Hcl (Zofran) (02/25/25 19:00) Docusate Sodium Capsule (Colace Capsule) (02/25/25 19:00) Condition: Serious (02/25/25 18:48) Acetaminophen Tablet (Tylenol Tablet) (02/25/25 19:00) Clear Liq Diet (02/26/25 Breakfast) Bedrest With Bathroom Privileg (02/25/25 18:48) Nitroglycerin Sublingual (Ntrostat Subli (02/25/25 19:00) Morphine Sulfate Injection (02/25/25 19:00) Stat Ekg For Chest Pain (02/25/25 18:48) Notify Md Of Changes From Base (02/25/25 18:48) Center Director Lead Teacher For 24 Hours (02/25/25 18:48) Emergency Dysrhythmia Protocol (02/25/25 18:48) Rhythm Strips Once Every Shift (02/25/25 18:48) Oxygen By Nasal Cannula (02/25/25 18:48) Vital Signs Date Time Temp Pulse Resp B/P (MAP) Pulse Ox O2 Delivery O2 Flow Rate FiO2 02/25/25 15:57 98.7 73 18 178/87 (117) 95 98.7 02/25/25 14:50 65 18 193/97 02/25/25 12:50 76 20 142/89 02/25/25 12:10 69 20 188/93 02/25/25 12:10 69 20 97 Room Air 02/25/25 12:10 98.6 69 20 188/93 (124) 97 98.6 Laboratory Tests Test 02/25/25 11:24 White Blood Count 12.5 10^3/uL (4.4-10.8) H Medications Medications Dose Ordered Sig/Kirsty Route Start Time Stop Time Status Last Admin Dose Admin Bupivacaine HCl 50 ml STK-MED ONCE IJ 02/25/25 17:45 02/25/25 17:46 DC 02/25/25 17:45 20 ML Cefazolin Sodium/ Dextrose 50 ml @ 50 mls/hr ONCE ONCE IV 02/25/25 14:00 02/25/25 14:59 DC 02/25/25 14:48 50 MLS/HR Metronidazole 100 ml @ 100 mls/hr ONCE ONCE IV 02/25/25 14:00 02/25/25 14:59 DC 02/25/25 14:48 100 MLS/HR Morphine Sulfate 4 mg ONCE ONCE IV 02/25/25 11:15 02/25/25 11:16 DC 02/25/25 12:10 4 MG Morphine Sulfate 4 mg ONCE ONCE IV 02/25/25 14:00 02/25/25 14:16 DC 02/25/25 14:50 4 MG Ondansetron HCl 4 mg ONCE ONCE IV 02/25/25 11:15 02/25/25 11:16 DC 02/25/25 12:08 4 MG Ondansetron HCl 4 mg ONCE ONCE IV 02/25/25 14:00 02/25/25 14:16 DC 02/25/25 14:49 4 MG Sodium Chloride 1,000 ml @ 1,000 mls/hr Q1H ONCE IV 02/25/25 11:15 02/25/25 12:14 DC 02/25/25 12:08 1,000 MLS/HR Sodium Chloride 1,000 ml @ 1,000 mls/hr Q1H ONCE IV 02/25/25 14:00 02/25/25 14:59 DC 02/25/25 14:29 1,000 MLS/HR Assessment/Plan Assessment/Plan Acute abdominal pain Acute cholecystitis Hypertensive urgency Leukocytosis, unspecified Intractable nausea and vomiting Status post laparoscopic cholecystectomy Plan 1. Admit to telemetry unit 2. Breathing treatment 3. Pain control management 4. IV antibiotic management 5. Management of fluids and electrolytes 6. Consultation for general surgery/hospitalist 7. Diagnostic test abdomen/pelvis CT 8. DVT prophylaxis-on SCDs 9. Repeat labs CBC, CMP in a.m. 10. Home medication reviewed and reconciled 11. Continue with current medical management 12. Treatment plan discussed with patient and RN. Patient verbalized understanding. Plan discussed with: Patient, Other (RN) My Orders Orders - EDILSON DELONG DNP Procedure Category Date Status Time Atorvastatin (Lipitor) PHA 02/26/25 Logged 22:00 Lisinopril Tablet PHA 02/26/25 Logged (Zestril Tablet) 10:00 Ceftriaxone 1gm/50ml PHA 02/26/25 Logged (Rocephin) 09:00 Ceftriaxone 1gm/50ml PHA 02/25/25 Logged (Rocephin) 19:00 Hydralazine Injection PHA 02/25/25 Logged (Apresoline Inject 19:00 Hemoglobin A1c LAB 02/25/25 Transmitted 18:48 Levothyroxine Tablet PHA 02/26/25 Transmitted (Synthroid Tablet) 06:00 Thyroid Stimulating LAB 02/26/25 Verified Hormone 04:00 Admit ADMIT 02/25/25 Transmitted 18:48 Allergies DOMONIQUE 02/25/25 In Process 18:48 Code Status CODE 02/25/25 Transmitted 18:48 Oxygen Per Hour RT 02/25/25 Transmitted 18:48 Hydrocodone-Acet PHA 02/25/25 Transmitted 5/325mg Tab ([place] 19:00 Ondansetron Hcl PHA 02/25/25 Transmitted (Zofran) 19:00 Docusate Sodium PHA 02/25/25 Transmitted Capsule (Colace 19:00 Condition: Serious [facility] 02/25/25 In Process 18:48 Acetaminophen Tablet [facility] 02/25/25 Transmitted (Tylenol Tablet) 19:00 Clear Liq Diet DIET 02/26/25 Transmitted Breakfast Bedrest With Bathroom [facility] 02/25/25 In Process Privileg 18:48 Nitroglycerin [facility] 02/25/25 Transmitted Sublingual (Ntrostat 19:00 Morphine Sulfate [facility] 02/25/25 Transmitted Injection 19:00 Stat Ekg For Chest [facility] 02/25/25 In Process Pain 18:48 Notify Md Of Changes [facility] 02/25/25 In Process From Base 18:48 Center Director Lead Teacher For [facility] 02/25/25 In Process 24 Hours 18:48 Emergency Dysrhythmia [facility] 02/25/25 In Process Protocol 18:48 Rhythm Strips Once [facility] 02/25/25 In Process Every Shift 18:48 Oxygen By Nasal RT 02/25/25 Transmitted Cannula 18:48 Problem List: (1) Acute abdominal pain (2) Acute cholecystitis (3) Hypertensive urgency (4) Leukocytosis, unspecified (5) Intractable nausea and vomiting (6) Status post laparoscopic cholecystectomy Date of Service: Feb 25, 2025 Billing Provider: EDILSON DELONG DNP Common Visit Codes: [id number] INP/OBS CARE (HIGH) EDILSON DELONG DNP Feb 25, 2025 19:18
[2025-02-25 20:00] VITALS: BP 120/60; PULSE 70; RESP 18; TEMP 97.7; O2SAT 96
[2025-02-25] MEDS ORDERED: cefTRIAXone SOD 1,000 MG VL ONE (20:06)
[2025-02-25 21:58] VITALS: RESP 18
[2025-02-26] VITALS (8 sets, daily range): BP systolic 118–156; BP diastolic 64–86; PULSE 58–75; RESP 16–17; TEMP 97.9–98.9; O2SAT 95–99
[2025-02-26] MEDS: ACETAMINOPHEN 325 MG TAB PO SCH (00:19)
[2025-02-26] MEDS: LEVOTHYROXINE SODIUM 25 MCG TAB PO SCH (05:40)
[2025-02-26 06:46] LABS: Hematocrit 33.1 % (36.0-46.0); Hemoglobin 11.6 g/dL (12.2-16.2); Mean Corpuscular Hemoglobin 32.1 pg (28.0-32.0); Mean Corpuscular Volume 91.4 fL (80.0-100.0); Nucleated Red Blood Cells % 0.0 %
[2025-02-26 06:59] LABS: Albumin 3.5 g/dL (3.2-4.8); Alkaline Phosphatase 80 U/L (46-116); Anion Gap 7 (5-15); BUN/Creatinine Ratio 9.4 (10.0-20.0); Calcium 9.1 mg/dL (8.7-10.4); Carbon Dioxide 30 mmol/L (20-31); Chloride 107 mmol/L (98-107); Glucose 91 mg/dL (74-106); Sodium 144 mmol/L (136-145)
[2025-02-26 07:00] LABS: Bilirubin, Direct 0.2 mg/dL (<0.3); Bilirubin, Total 0.7 mg/dL (0.2-1.0)
[2025-02-26 07:03] LABS: Alanine Aminotransferase 47 U/L (7-40); Blood Urea Nitrogen 5 mg/dL (9-23); Potassium 3.4 mmol/L (3.5-5.1); Total Protein 5.6 g/dL (5.7-8.2)
[2025-02-26] MEDS: POLYETHYLENE GLYCOL 17 GM PWDR PO SCH (09:58)
[2025-02-26] MEDS: LISINOPRIL 5 MG TAB PO SCH (09:59)
--- NOTE | 2025-02-26 11:16 | DVHPN2 ---
Progress Note - Surgical Date Seen: Feb 26, 2025 Post op day Post op day: 1 Subjective Patient reports: Feels better (Patient feels better today, no pain complaints, tolerating diet, ambulating, afebrile with vital stable) Review of Systems: Deferred Objective Vital signs Vital Sign Date Time Temp Pulse Resp B/P (MAP) Pulse Ox O2 Delivery O2 Flow Rate FiO2 02/26/25 09:59 145/76 02/26/25 08:42 98.1 59 16 97 98.1 02/25/25 21:58 Room Air* 0 21 Total Intake and Output 02/25/25 02/25/25 02/26/25 15:00 23:00 07:00 Intake Total 2000 ml 100 ml 500 ml Balance 2000 ml 100 ml 500 ml Medications Current Medications Medications Dose Ordered Sig/Kirsty Route Start Time Stop Time Status Last Admin Dose Admin Acetaminophen/ Hydrocodone Bitart 1 tab Q4HR PRN PO 02/25/25 18:30 Acetaminophen 650 mg Q6HR PO 02/26/25 00:00 02/26/25 05:41 650 MG Polyethylene Glycol 17 gm DAILY PO 02/26/25 10:00 02/26/25 09:58 17 GM Atorvastatin Calcium 10 mg HS PO 02/26/25 22:00 Lisinopril 10 mg DAILY PO 02/26/25 10:00 02/26/25 09:59 10 MG Ceftriaxone Sodium 50 ml @ 100 mls/hr DAILY@09 IV 02/26/25 09:00 02/26/25 09:59 100 MLS/HR Hydralazine HCl 10 mg Q6HP PRN IV 02/25/25 19:00 Levothyroxine Sodium 75 mcg QAM@0600 PO 02/26/25 06:00 02/26/25 05:40 75 MCG Acetaminophen/ Hydrocodone Bitart 1 tab Q4HP PRN PO 02/25/25 19:00 Ondansetron HCl 4 mg Q4HP PRN IV 02/25/25 19:00 Docusate Sodium 100 mg BIDPRN PRN PO 02/25/25 19:00 Acetaminophen 650 mg Q6HP PRN PO 02/25/25 19:00 Nitroglycerin 0.4 mg Q5MINP PRN SL 02/25/25 19:00 Morphine Sulfate 2 mg Q30M PRN IV 02/25/25 19:00 Laboratory Laboratory Tests 02/26/25 05:29 Test 02/26/25 05:29 Range/Units Serum Glucose 91 74-106 mg/dL Examination: GENERAL:Normal (Well nourished, alert awake and oriented x3), HEENT:Normal (No icterus, neck supple), LUNGS:Normal (Nonlabored breathing with symmetric expansion), ABDOMEN:Normal (Nondistended, incision sites with overlying skin glue and without surrounding signs of infection, infraumbilical ecchymosis, nontender, soft, depressible) Labs and/or images reviewed: Labs reviewed by me (Leukocytosis resolved, hemoglobin down trended likely a combination of blood loss and delusional) Problem List/Assessment/Plan Problems: (1) Acute cholecystitis Assessment and Plan Mrs. Mobley is a 59-year-old female who presented yesterday with a acute cholecystitis, and is currently postop day 1 from laparoscopic cholecystectomy. Labs today show downtrending white count 6.6 from 12.5, LFTs normal and downtrending hemoglobin (likely due to dilutional coupled with intraoperative blood loss), her vital signs are stable (no tachycardia, no hypotension). Patient ambulating, pain well controlled, tolerating diet. Patient cleared for discharge per surgical standpoint. 1. Cleared for discharge per surgical standpoint 2. Low-fat diet 3. No lifting over 10 lb for 6 weeks 4. May shower starting today, soap and water okay to run over incision sites. No swimming and/or bathing for 2 weeks. 5. Tylenol and/or ibuprofen for baseline pain control. 6. Recommend [place] 5 mg -325 every 6 hours p.r.n. severe pain 7. No driving while taking narcotics 8. Follow up with Dr. Hebert at [facility] in 2 weeks, please call for appointment. My Orders My Orders Orders - JEROME PRABHAKAR MD Procedure Category Date Status Time Npo After Midnight DOMONIQUE 02/25/25 In Process 15:14 Obtain Consent For: ORDERS 02/25/25 Transmitted 16:07 Obtain Consent For DOMONIQUE 02/25/25 In Process Anesthesia 16:07 Hydrocodone-Acet PHA 02/25/25 In Process 10/325mg Tab ([place] 18:30 Acetaminophen Tablet PHA 02/26/25 In Process (Tylenol Tablet) 00:00 Polyethylene Glycol PHA 02/26/25 In Process 17g Powder (Miralax 10:00 Abdominal Binder DOMONIQUE 02/25/25 In Process 18:17 Sequential DOMONIQUE 02/25/25 In Process Compression Device 18:17 Incentive Spirometry ORDERS 02/25/25 Transmitted 18:17 Communication Order ORDERS 02/26/25 Transmitted 10:35 Plan discussed with Plan discussed with: Patient Visit Coding Surgery Date of Service if different f: Feb 26, 2025 Billing Provider: JEROME PRABHAKAR MD Surgery Visit Codes: [id number] INP/OBS CARE(HIGH) JEROME PRABHAKAR MD Feb 26, 2025 11:16
[2025-02-26] MEDS ORDERED: HYDR-4902 PO (15:13)
--- NOTE | 2025-02-26 15:15 | DVHDS2 ---
Discharge Summary Date of Admission Feb 25, 2025 at 18:48 Date of Discharge: Feb 26, 2025 Admitting Diagnosis Acute abdominal pain Acute cholecystitis Hypertensive urgency Leukocytosis, unspecified Intractable nausea and vomiting Labs/Diagnostic Data: Laboratory Results Test 02/26/25 05:29 02/25/25 16:20 02/25/25 11:31 02/25/25 11:24 White Blood Count 6.6 10^3/uL (4.4-10.8) Red Blood Count 3.62 10^6/uL (4.0-5.20) Hemoglobin 11.6 g/dL (12.2-16.2) Hematocrit 33.1 % (36.0-46.0) Mean Corpuscular Volume 91.4 fL (80.0-100.0) Mean Corpuscular Hemoglobin 32.1 pg (28.0-32.0) Mean Corpuscular Hemoglobin Concent 35.1 g/dL (32.0-36.0) Red Cell Distribution Width 12.9 % (11.8-14.3) Platelet Count 175 10^3/uL (140-450) Mean Platelet Volume 9.1 fL (6.9-10.8) Neutrophils (%) (Auto) 71.6 % (37.0-80.0) Lymphocytes (%) (Auto) 18.5 % (10.0-50.0) Monocytes (%) (Auto) 9.1 % (0.0-12.0) Eosinophils (%) (Auto) 0.4 % (0.0-7.0) Basophils (%) (Auto) 0.4 % (0.0-2.0) Neutrophils # (Auto) 4.7 10 ^3/uL (1.6-8.6) Lymphocytes # (Auto) 1.2 10 ^3/uL (0.4-5.4) Monocytes # (Auto) 0.6 10 ^3/uL (0-1.3) Eosinophils # (Auto) 0 10 ^3/uL (0-0.8) Basophils # (Auto) 0 10 ^3/uL (0-0.2) Nucleated Red Blood Cells 0.0 % Sodium Level 144 mmol/L (136-145) Potassium Level 3.4 mmol/L (3.5-5.1) Chloride Level 107 mmol/L (98-107) Carbon Dioxide Level 30 mmol/L (20-31) Anion Gap 7 (5-15) Blood Urea Nitrogen 5 mg/dL (9-23) Creatinine 0.53 mg/dL (0.550-1.02) Glomerular Filtration Rate Calc 105 mL/min (>90) BUN/Creatinine Ratio 9.4 (10.0-20.0) Serum Glucose 91 mg/dL (74-106) Calcium Level 9.1 mg/dL (8.7-10.4) Total Bilirubin 0.7 mg/dL (0.2-1.0) Direct Bilirubin 0.2 mg/dL (<0.3) Aspartate Amino Transferase (AST) 39 U/L (13-40) Alanine Aminotransferase (ALT) 47 U/L (7-40) Alkaline Phosphatase 80 U/L (46-116) Total Protein 5.6 g/dL (5.7-8.2) Albumin 3.5 g/dL (3.2-4.8) Thyroid Stimulating Hormone (TSH) 0.75 uIU/mL (0.55-4.78) Prothrombin Time 10.3 sec (9.3-11.8) Prothrombin Time INR 0.97 (0.9-1.15) Activated Partial Thromboplast Time 25.9 SEC (24.5-34.5) Urine Color Yellow (Yellow) Urine Clarity Clear (Clear) Urine pH 6.0 (5.0-9.0) Urine Specific Kimberly 1.022 (1.001-1.035) Urine Protein 1+ (Negative) Urine Ketones Negative (Negative) Urine Blood 2+ /uL (Negative) Urine Nitrite Negative (Negative) Urine Bilirubin Negative (Negative) Urine Urobilinogen Normal mg/dL (Negative) Urine Leukocyte Esterase Negative /uL (Negative) Urine RBC 21 /hpf (0 - 4) Urine Microscopic WBC 5 /HPF (0-5) Urine Squamous Epithelial Cells Few /hpf (<5) Urine Bacteria Few /hpf (None Seen) Urine Mucus Few (None Seen) Urine Glucose Trace mg/dL (Normal) Hemoglobin A1c 5.3 % A1C (<5.7) Troponin I High Sensitivity 29 ng/L (</=34) Lipase 25 U/L (12-53) Other Laboratory Tests 02/26/25 05:29 Brief Hx & Hospital Course: This is a 59 years old female with past medical history of cholelithiasis, hypothyroidism, hyperlipidemia, left breast cancer, hypertension come to emergency department because severe abdominal pain. The patient was experience acute abdominal pain rating 8/10 numeric scale, radiating sternal chest pain, down to epigastric area, bilateral flank, cervical pain, associated nausea, vomiting, chills, getting worse that prompted this visit. Patient was seen and evaluated in the ED, laboratory data shows WBC 12.5, platelets 252, sodium 140, potassium 3.8, BUN 8, creatinine 0.68, GFR 99, glucose 133, calcium 10.5, albumin 4.9, lipase 25, troponin 29, blood pressure 178/87, heart rate 74, temperature 98.7 F, O2 saturation 95% on room air. Abdomen/pelvis CT revealing cholelithiasis with mild gallbladder wall thickening and subtle minimal pericholecystic inflammatory change, raising possibility of early acute cholecystitis; diffuse hepatic steatosis, colonic diverticulosis. The patient was admitted. Patient was put on IV antibiotic. The patient subsequently had cholecystectomy done. After surgery the patient doing well. The patient tolerated diet. The patient able to ambulate. The patient pass flatus. Surgeon cleared the patient for discharge. Her blood pressure controlled. I am going to discharge her home. Advised him to follow up with primary care physician 1-2 weeks. Activity as tolerated. Diet per home diet. Physical exam HEENT: Normocephalic atraumatic pupils equal react to light and accommodation. Extraocular muscles intact, conjunctiva pink, oropharynx moist, no thrush, no exudate. Lymphatic: No lymphadenopathy Cardiovascular exam: S1, S2 was heard. No murmurs, rubs, gallops Lung: Clear on auscultation bilaterally, no wheeze, rale, rhonchi. GI: Abdominal soft, nondistended, nontenderness, positive bowel sounds. Extremity: No crepitus, cyanosis, edema. Pedal pulses present bilateral. Full range of motion. Skin: Normal turgor, no rash. Psych: Alert, oriented x3. Neurology: No focal deficits, cranial nerve II to XII grossly intact. This medical document was created using an electronic medical record system with [employer] direct computerized dictation system. Although this document has been carefully reviewed, there may still be some phonetic and typographical errors. These areas are purely typographical due to imperfections of the software programs, and do not reflect any compromise in the patient's medical care. Condition at Discharge: Stable Final Diagnosis/Problems List Acute abdominal pain Acute cholecystitis Hypertensive urgency Leukocytosis, unspecified Intractable nausea and vomiting Status post laparoscopic cholecystectomy Discharge Disposition: Home Discharge Instruct/Medications Diet: Regular Activity: No Restrictions, As Tolerated Follow Up/Referral: pcp 1-2 weeks Medications: see med list Scheduled PRN Hydrocodone-Acetaminophen (Hydrocodone Bitartrate/AC 5-325 mg), 1 TAB PO Q4HP PRN Discharge Statement: "Patient was advised to return to the ER or call 911 if any headaches, dizziness, shortness of breath, chest pain, abdominal pain, bleeding, fevers, or worsening of medical condition. Patient was counseled about treatment plan, medications, possible side effects, patientverbalized understanding. All questions were answered to the best of my ability. This discharge took greater then 30 minutes in planning, reviewing documentation, counseling the patient, and discussing with other team members." ASSESSMENT ASSESSMENT Assessment acute cholecystitis, status post cholecystectomy Date of Service: Feb 26, 2025 Billing Provider: NIKI MARIE MD Common Visit Codes: 09766-GHS/OBS DISCH DAY >30min NIKI MARIE MD Feb 26, 2025 15:15
[2025-02-26] MEDS ORDERED: ATORVASTATIN 20 MG TAB PO SCH (22:00)
--- NOTE | 2025-02-27 09:27 | ECG ---
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
== END 2025-02-26 17:03 | disposition home or self-care (01) | DRG 263 ==
LOC: ER 09:02 → OVERFLOW 18:48 → TELE-EAST 18:56
PROVIDERS: ADMIT Nurse Practitioner Family; ATTEND Nurse Practitioner Family
PROC: 0DNU4ZZ Release Omentum, Percutaneous Endoscopic Approach (ICD-10-PCS; 2025-02-25)
PROC: 0FT44ZZ Resection of Gallbladder, Percutaneous Endoscopic Approach (ICD-10-PCS; principal; 2025-02-25 16:46)
DX: K81.0 Acute cholecystitis (principal); I16.0 Hypertensive urgency; E03.9 Hypothyroidism, unspecified; I10 Essential (primary) hypertension; D72.829 Elevated white blood cell count, unspecified; E78.5 Hyperlipidemia, unspecified; K82.8 Other specified diseases of gallbladder; K66.0 Peritoneal adhesions (postprocedural) (postinfection); Z85.3 Personal history of malignant neoplasm of breast
CPT/HCPCS: 36415; 71045; 74177; 80053; 81001; 82248; 83036; 83690; 84443; 84484; 85025; 85610; 85730; 86850; 86900; 86901; 93005; 96361; 96374; 99291; G0378; J0131; J0694; J0696; J2003; J2250; J2405; J2704; J3490